=== PATIENT | female | born 1965 | race Caucasian/White ===

== ENCOUNTER → 2016-11-14 | Outpatient (CLI) | payer OTHER | LOC: CIMAGING 08:28 | DX: Z12.31 Encounter for screening mammogram for malignant neoplasm of breast (principal); Z80.3 Family history of malignant neoplasm of breast | CPT/HCPCS: G0202 ==

== ENCOUNTER → 2017-11-18 | Outpatient (CLI) | payer OTHER | LOC: CIMAGING 09:25 | PROVIDERS: ATTEND Internal Medicine | DX: Z12.31 Encounter for screening mammogram for malignant neoplasm of breast (principal); Z80.3 Family history of malignant neoplasm of breast ==

== ENCOUNTER → 2018-10-15 | Outpatient (CLI) | payer OTHER | LOC: CIMAGING 13:50 | PROVIDERS: ATTEND Internal Medicine | DX: M89.8X7 Other specified disorders of bone, ankle and foot (principal); M20.11 Hallux valgus (acquired), right foot; M21.611 Bunion of right foot; M24.08 Loose body, other site | CPT/HCPCS: 73630-PO ==

== ENCOUNTER 2018-10-16 16:41 | Emergency (ER) | payer OTHER ==
[2018-10-16] MEDS ORDERED: VANCOMYCIN HCL/NORMAL SALINE 250 ML IV ONE (17:11)
[2018-10-16] MEDS ORDERED: NS 1,000 ML IV ONE (17:13)
[2018-10-16] MEDS ORDERED: HYDROCODONE/APAP 5/325 TAB PO ONE (17:50)
[2018-10-16] MEDS ORDERED: KETOROLAC 30 MG/1 ML SDV IVP ONE (17:50)
--- NOTE | 2018-10-16 18:01 | EDPHY ---
H & P Time Seen by Provider: 10/16/18 17:11 HPI/ROS: CHIEF COMPLAINT: Right foot redness HISTORY OF PRESENT ILLNESS: This is a 53-year-old female who presents to the emergency department reporting right foot pain and right foot redness. Patient has a history of having a staph infection in that foot in childhood resulting in surgical debridement. Since that time the patient often notes pain and slight redness over the old surgical scar. She thinks she has had flares of infection in the past, although none since her late 20s. Her foot has been bothering her for about the past 6-7 days. Of note the patient had a dental infection treated with penicillin 5 days ago. Patient has been on penicillin for the last 5 days. She was seen at her primary care physician's office yesterday with complaints of redness to the dorsum of the foot and pain. At that point she was taken off of the penicillin and placed on Augmentin. She had a foot x-ray ordered which demonstrated some sclerosis along the metatarsal which may be related to a stress injury. She presents to me today with reports that the pain has become worse. She thinks that the redness is about the same. The area is slightly warm. She has not had a fever since the initial fever a week ago which at that time she thought was related to a dental infection. She has not had any nausea or vomiting. REVIEW OF SYSTEMS: A comprehensive 10 system review of systems was reviewed and is otherwise negative aside from elements mentioned in the history of present illness and medical decision making. PAST MEDICAL HISTORY: History of atrial fibrillation. SOCIAL HISTORY: Nonsmoker. Avid runner. GENERAL APPEARANCE: Pleasant alert, appears in no acute distress. Reports the pain in her foot is about 8/10. FOCUSED EXAM OF right foot: Faint erythema is present over the dorsum of the foot with mild swelling. This is surrounding a surgical scar. Patient has tenderness over this region as well as tenderness along the plantar surface. No erythema on the ankle or lower extremity. Calf compartments are soft. No erythema or pain at the metatarsal joints. Neurovascular exam: Good capillary refill, normal motor exam, normal neurologic exam. Smoking Status: Never smoked Constitutional: Initial Vital Signs Temperature (C) 36.9 C 10/16/18 16:50 Heart Rate 53 L 10/16/18 16:50 Respiratory Rate 16 02/28/19 16:50 Blood Pressure 155/85 H 10/16/18 16:50 O2 Sat (%) 96 10/16/18 16:50 O2 Delivery Mode Room Air Allergies/Adverse Reactions: No Known Allergies Allergy (Verified 10/16/18 16:53) Home Medications: Medication Instructions Recorded Cephalexin [Keflex (RX)] 500 mg PO QID 7 Days cap 10/16/18 Doxycycline Hyclate [Vibramycin 100 mg PO BID #14 cap 10/16/18 100 MG (*)] Hydrocodone/APAP 5/325 [[place] 1 tab PO Q6H PRN #14 tab 10/16/18 5/325 (RX)] Metoprolol Tartrate 10/16/18 Medical Decision Making ED Course/Re-evaluation: 53-year-old female presenting with pain in her right foot. Thought to be due to a mild cellulitis. Patient has been on Augmentin. I do have concerns that this may be an osteomyelitis or perhaps a traumatic finding causing her this significant pain. Patient most likely needs advanced imaging such as an MRI. Unclear to me if her prior staph infection in childhood was MRSA. Patient had IV established and she received 1 g of vancomycin. Area of erythema was outlined. Patient had a white blood cell count from yesterday which was 3.6. Sed rate was normal. Chemistries today are normal. She received Toradol IV for pain control. I will start the patient on dual oral antibiotic coverage of Keflex and doxycycline. Patient will follow tomorrow with her primary care physician's office to arrange advanced imaging studies such as an MRI. She will return to the emergency department or seek care urgently if she has worsening pain, redness, runs a fever, or has other concerns. Differential Diagnosis: Differential diagnoses for the patient's symptom complex was considered including but not limited to cellulitis, gout, osteomyelitis, stress fracture, MSSA, MRSA. - Data Points Laboratory Results: 10/16/18 17:20 POC Sodium 140 mEq/L mEq/L (135-145) POC Potassium 4.3 mEq/L mEq/L (3.3-5.0) POC Chloride 101.0 mEq/L mEq/L (97-110) POC Total CO2 25 mEq/L mEq/L (22-31) POC BUN 14 mg/dL mg/dL (7-23) POC Creatinine 0.5 mg/dL L mg/dL (0.6-1.0) POC Glucose 95 mg/dL mg/dL (70-100) POC Calcium 9.5 mg/dL mg/dL (8.5-10.4) Medications Given: Discontinued Medications Hydrocodone Bitart/Acetaminophen ([place] 5/325) 1 tab PO EDNOW ONE Stop: 10/16/18 17:51 Last Admin: 10/16/18 17:57 Dose: 1 tab Vancomycin/Sodium Chloride (Vancomycin 1 Gm (Premix)) 250 mls @ 250 mls/hr IV EDNOW ONE PRN Reason: Protocol Stop: 10/16/18 18:10 Last Admin: 10/16/18 17:25 Dose: 250 mls Sodium Chloride (Ns) 1,000 mls @ 0 mls/hr IV ONCE ONE; Wide Open PRN Reason: Protocol Stop: 10/16/18 17:14 Last Admin: 10/16/18 17:24 Dose: 1,000 mls Ketorolac Tromethamine (Toradol) 30 mg IVP EDNOW ONE Stop: 10/16/18 17:51 Last Admin: 10/16/18 17:57 Dose: 30 mg Point of Care Test Results: Chemistry 10/16/18 17:20 POC Sodium 140 mEq/L mEq/L (135-145) POC Potassium 4.3 mEq/L mEq/L (3.3-5.0) POC Chloride 101.0 mEq/L mEq/L (97-110) POC Total CO2 25 mEq/L mEq/L (22-31) POC BUN 14 mg/dL mg/dL (7-23) POC Creatinine 0.5 mg/dL L mg/dL (0.6-1.0) POC Glucose 95 mg/dL mg/dL (70-100) POC Calcium 9.5 mg/dL mg/dL (8.5-10.4) Departure - Departure Disposition: Home, Routine, Self-Care Clinical Impression: Right foot pain Cellulitis Qualifiers: Site of cellulitis: extremity Site of cellulitis of extremity: lower extremity Laterality: right Qualified Code(s): L03.115 - Cellulitis of right lower limb Condition: Good Instructions: Cellulitis (ED), Arthralgia (ED) Additional Instructions: I recommend Ibuprofen (Motrin, Advil) or Naproxen Sodium (Aleve) for pain and anti-inflammatory effects. You may take either one, but do not take both. Your dose is: Ibuprofen 600 mg every 6-8 hours with food. OR Naproxen Sodium (Aleve) 220 mg every 12 hours. Please take antibiotics as directed. Keflex 500 mg by mouth 4 times a day and doxycycline 100 mg by mouth 2 times a day. Please follow up with your primary care physician at least by phone tomorrow for consideration of advanced imaging studies. I believe a stress fracture or a osteomyelitis are a possibility causing your pain. You been given a prescription for hydrocodone. You may take this as needed for severe pain. Unless you develop significant increase in the redness, significant increase in the swelling or warmth, I do not believe you needed scheduled recheck in the emergency department. Referrals: Sumeet Arias MD [Primary Care Provider] - As per Instructions Prescriptions: Cephalexin [Keflex (RX)] 500 mg PO QID 7 Days cap Doxycycline Hyclate [Vibramycin 100 MG (*)] 100 mg PO BID #14 cap Hydrocodone/APAP 5/325 [[place] 5/325 (RX)] 1 tab PO Q6H PRN #14 tab PRN Reason: Pain
[2018-10-16 18:55] VITALS: BP 123/83
== END 2018-10-16 18:54 | disposition home or self-care (01) ==
LOC: CED 16:41
DX: M79.671 Pain in right foot (principal); L03.115 Cellulitis of right lower limb; Z79.899 Other long term (current) drug therapy
CPT/HCPCS: 80048-ER; 96365; 96375-ER; 99284-ER; J1885; J3370

== ENCOUNTER → 2018-10-20 | Outpatient (CLI) | payer OTHER ==
[~2018-10-20] MED LIST: GADOBUTROL 10 ML VIAL IVP ONE
== END ==
LOC: FIMAGING 16:54
PROVIDERS: ATTEND Internal Medicine
DX: S92.324A Nondisplaced fracture of second metatarsal bone, right foot, initial encounter for closed fracture (principal); S86.311A Strain of muscle(s) and tendon(s) of peroneal muscle group at lower leg level, right leg, initial encounter; M24.071 Loose body in right ankle
CPT/HCPCS: A9585

== ENCOUNTER → 2018-11-25 | Outpatient (CLI) | payer OTHER | LOC: CIMAGING 08:02 | PROVIDERS: ATTEND Internal Medicine | DX: Z12.31 Encounter for screening mammogram for malignant neoplasm of breast (principal) ==